=== PATIENT | female | born 1995 | race Caucasian/White ===

== ENCOUNTER 2020-02-07 12:50 | Emergency (ER) | payer OTHER, MEDICAID ==
[~2020-02-07] VITALS: Ht 149.9 cm; Wt 91.2 kg
[2020-02-07 12:50] VITALS: BP_SYST 107
--- NOTE | 2020-02-07 12:50 | NUR ---
BROUGHT BACK TO BED #8 AND TRIAGED. REPORT GIVEN TO ASIF
--- NOTE | 2020-02-07 13:00 | NUR ---
DIRK Maki [employer] OFFBEARER at bedside examining patient.
[2020-02-07 13:31] VITALS: BP_SYST 107
--- NOTE | 2020-02-07 13:32 | NUR ---
Patient given written and verbal discharge instructions and verbalizes understanding. ER MD discussed with patient the results and treatment provided. Patient in stable condition. ID arm band removed. Rx of Ciprodex given. Patient educated on pain management and to follow up with PMD. Pain Scale 3/10. Opportunity for questions provided and answered. Medication side effect fact sheet provided.
--- NOTE | 2020-02-07 13:39 | NUR ---
Patient moved to ER hallway.
--- NOTE | 2020-02-07 13:47 | NUR ---
Foreign object removed from right ear by [employer].
--- NOTE | 2020-02-07 13:49 | NUR ---
Patient given written and verbal discharge instructions and verbalizes understanding. ER MD discussed with patient the results and treatment provided. Patient in stable condition. ID arm band removed. Rx of Cebrix drops given. Patient educated on pain management and to follow up with PMD. Pain Scale 0/10. Opportunity for questions provided and answered. Medication side effect fact sheet provided.
== END 2020-02-07 13:31 | disposition home or self-care (01) ==
LOC: SED 12:50
DX: T16.1XXA Foreign body in right ear, initial encounter (principal); X58.XXXA Exposure to other specified factors, initial encounter; Y93.89 Activity, other specified; Y92.89 Other specified places as the place of occurrence of the external cause; Y99.8 Other external cause status
CPT/HCPCS: 99284